=== PATIENT | female | born 1980 | race Caucasian/White ===

== ENCOUNTER 2018-12-31 10:40 | Emergency (ER) | payer MEDICAID ==
[~2018-12-31] VITALS: Ht 165.1 cm; Wt 68.0 kg
[2018-12-31 10:47] VITALS: BP_SYST 113
--- NOTE | 2018-12-31 10:49 | NUR ---
Patient to ER bed 03 to gown for evaluation. Side rails up.
--- NOTE | 2018-12-31 10:59 | NUR ---
patient arrived AOx4 from home with c/o whole body aches and generalized ill feeling x 4 days. patient states she has a fever, however, she is afebrile upon arrival. no n/v/d at this time. no other complaint or injury at this time.
--- NOTE | 2018-12-31 11:00 | NUR ---
ER at bedside examining patient.
[2018-12-31 12:00] LABS: BILIRUBIN,URINE NEGATIVE (NEGATIVE); BLOOD, URINE 3+ (NEGATIVE); CLARITY/URINE SL CLOUDY (CLEAR); COLOR,URINE YELLOW (YELLOW); GLUCOSE,URINE NEGATIVE (NEGATIVE); KETONES,URINE NEGATIVE (NEGATIVE); LEUKOCYTE ESTERASE ,URINE 2+ (NEGATIVE); NITRITE, URINE NEGATIVE (NEGATIVE); PROTEIN URINE 2+ (NEGATIVE); UROBILINOGEN,URINE 0.2 (0.2-1.0)
[2018-12-31] MEDS ORDERED: ACETAMINOPHEN 650 MG/20.3 ML UDC PO ONE (12:00)
[2018-12-31 12:12] LABS: BACTERIA,URINE MODERATE /HPF (None Seen); MUCUS,URINE None Seen /LPF (None Seen); WBC,URINE 50-80 /HPF (0-3); YEAST,URINE None Seen /HPF (None Seen)
[2018-12-31 12:17] LABS: WHITE BLOOD COUNT (AUTO) 13.4 K/uL (4.8-10.8)
[2018-12-31 12:18] LABS: EOSINOPHILS % (AUTO) 0.1 % (0.0-4.0); HEMATOCRIT 38.2 % (36-48); HEMOGLOBIN 12.6 g/dL (12.0-16.0); LYMPHOCYTES % (AUTO) 11.6 % (20.5-51.5); MEAN CORPUSCULAR HEMOGLOBIN 32 pg (27-31); MEAN CORPUSCULAR HGB CONC 33 % (32-36); MEAN CORPUSCULAR VOLUME 96 fL (79.0-98.0); PLATELET COUNT (AUTO) 294 K/uL (130-430); RED BLOOD CELL COUNT(AUTO) 3.98 MIL/uL (4.2-6.2); RED CELL DISTRIBUTION WIDTH 13.3 % (9.0-15.0)
[2018-12-31 12:19] LABS: BASOPHILS % (AUTO) 0.3 % (0.0-2.0); LYMPHOCYTES # (AUTO) 1.5 K/uL (1.0-5.5); MONOCYTES # (AUTO) 1.3 K/uL (0.0-1.0); NEUTROPHILS # (AUTO) 10.5 K/uL (1.8-7.7)
[2018-12-31 12:26] LABS: BARBITURATE, URINE NEGATIVE (NEG <=200); BENZODIAZEPINE, URINE POSITIVE (NEG <=150); CANNABINOID, URINE NEGATIVE (NEG <=50); COCAINE, URINE NEGATIVE (NEG <=150); METHAMPHETAMINES SCREEN,URINE POSITIVE (NEG <=500); OPIATE, URINE NEGATIVE (NEG <=100); PHENCYCLIDINE SCREEN,URINE NEGATIVE (NEG <=25); UR TRICYCLIC ANTIDEPRESSANTS NEGATIVE (NEG <=300); URINE AMPHETAMINE POSITIVE (NEG <=500); URINE METHADONE NEGATIVE (NEG <=200); URINE OXYCODONE SCREEN NEGATIVE (NEG <=100); URINE PROPOXYPHENE SCREEN NEGATIVE (NEG <=300)
[2018-12-31 12:38] LABS: CALCIUM 8.2 mg/dL (8.4-11.0); CREATININE 1.12 mg/dL (0.55-1.30); POTASSIUM 3.6 mmol/L (3.5-5.1)
[2018-12-31 12:45] LABS: ALBUMIN 3.1 g/dL (3.4-4.8); TOTAL BILIRUBIN 0.5 mg/dL (0.0-1.0)
[2018-12-31] MEDS ORDERED: NITROFURANTOIN MONOHYD/M-CRYST 100 MG CAPSULE PO ONE (12:45)
[2018-12-31] MEDS ORDERED: CEPHALEXIN 500 MG CAPSULE PO ONE (12:45)
[2018-12-31 12:55] VITALS: BP_SYST 135
--- NOTE | 2018-12-31 12:55 | NUR ---
Patient given written and verbal discharge instructions and verbalizes understanding. ER MD discussed with patient the results and treatment provided. Patient in stable condition. ID arm band removed. Rx of Ciprofloxacin given. Patient educated on pain management and to follow up with PMD. Pain Scale 0/10. Opportunity for questions provided and answered. Medication side effect fact sheet provided.
== END 2018-12-31 12:55 | disposition home or self-care (01) ==
LOC: SED 10:40
DX: R10.11 Right upper quadrant pain (principal); R53.83 Other fatigue; M79.10 Myalgia, unspecified site; R20.2 Paresthesia of skin; J02.9 Acute pharyngitis, unspecified; R19.7 Diarrhea, unspecified; F17.200 Nicotine dependence, unspecified, uncomplicated; Z90.49 Acquired absence of other specified parts of digestive tract; Z90.89 Acquired absence of other organs; Z87.442 Personal history of urinary calculi; Z88.5 Allergy status to narcotic agent
CPT/HCPCS: 36415; 80053; 80307; 81000-TC; 85025; 86710; 87086; 87186-TC; 99283; 99284

== ENCOUNTER 2019-01-02 11:25 | Inpatient (IN) | payer MEDICAID ==
[~2019-01-02] VITALS: Ht 165.1 cm; Wt 68.0 kg
[~2019-01-02 11:25] MED LIST: GLYCOPYRROLATE 0.2 MG/ML VIAL IJ ONE; IOHEXOL 300 mgI/mL, 50 mL INFUS..BTL IV ONE; KETOROLAC TROMETHAMINE 30 MG VIAL IVP ONE; LR 1,000 ML IV.SOLN IV ONE; MIDAZOLAM HCL 5 MG/5 ML VIAL IVP ONE; NEOSTIGMINE METHYLSULFATE 1 MG/ML, 10 ML VIAL IVP ONE; ONDANSETRON HCL 4 MG/2 ML VIAL IVP ONE; PROPOFOL 200MG/ 20ML VIAL (DIPRIVAN) IV ONE; ROCURONIUM BROMIDE 10 MG/ML (ZEMURON) IV ONE; SEVOFLURANE 15 MIN GAS INH ONE; fentaNYL CITRATE/PF 100 MCG/2 ML AMP IVP ONE
[2019-01-02 11:56] VITALS: BP_SYST 121
[2019-01-02] MEDS ORDERED: NACL 0.9% 1,000 ML IV ONE (12:55)
[2019-01-02] MEDS ORDERED: KETOROLAC TROMETHAMINE 30 MG VIAL IVP ONE (13:00)
[2019-01-02 13:10] LABS: BILIRUBIN,URINE NEGATIVE (NEGATIVE); BLOOD, URINE 3+ (NEGATIVE); CLARITY/URINE SL HAZY (CLEAR); COLOR,URINE YELLOW (YELLOW); GLUCOSE,URINE NEGATIVE (NEGATIVE); KETONES,URINE NEGATIVE (NEGATIVE); LEUKOCYTE ESTERASE ,URINE 1+ (NEGATIVE); NITRITE, URINE NEGATIVE (NEGATIVE); PROTEIN URINE 1+ (NEGATIVE); UROBILINOGEN,URINE 0.2 (0.2-1.0)
[2019-01-02 13:22] LABS: BACTERIA,URINE FEW /HPF (None Seen); MUCUS,URINE 1+ /LPF (None Seen); WBC,URINE 20-50 /HPF (0-3)
[2019-01-02 13:48] LABS: RED BLOOD CELL COUNT(AUTO) 3.71 MIL/uL (4.2-6.2); WHITE BLOOD COUNT (AUTO) 7.6 K/uL (4.8-10.8)
[2019-01-02 13:49] LABS: HEMATOCRIT 35.6 % (36-48); HEMOGLOBIN 12.3 g/dL (12.0-16.0); MEAN CORPUSCULAR HEMOGLOBIN 33 pg (27-31); MEAN CORPUSCULAR VOLUME 96 fL (79.0-98.0)
[2019-01-02 13:50] LABS: EOSINOPHILS % (AUTO) 2.1 % (0.0-4.0); LYMPHOCYTES % (AUTO) 17.3 % (20.5-51.5); MEAN CORPUSCULAR HGB CONC 34 % (32-36); MONOCYTES % (AUTO) 9.7 % (1.7-9.3); NEUTROPHILS % (AUTO) 70.5 % (40.0-70.0); PLATELET COUNT (AUTO) 342 K/uL (130-430); RED CELL DISTRIBUTION WIDTH 13.3 % (9.0-15.0)
[2019-01-02 13:51] LABS: BASOPHILS % (AUTO) 0.4 % (0.0-2.0); EOSINOPHILS # (AUTO) 0.2 K/uL (0.0-0.4); LYMPHOCYTES # (AUTO) 1.3 K/uL (1.0-5.5); MONOCYTES # (AUTO) 0.7 K/uL (0.0-1.0); NEUTROPHILS # (AUTO) 5.4 K/uL (1.8-7.7)
[2019-01-02 14:00] LABS: CALCIUM 8.9 mg/dL (8.4-11.0); CREATININE 0.8 mg/dL (0.55-1.30); POTASSIUM 3.6 mmol/L (3.5-5.1)
[2019-01-02 14:09] LABS: ALBUMIN 2.9 g/dL (3.4-4.8); TOTAL BILIRUBIN 0.2 mg/dL (0.0-1.0)
[2019-01-02] MEDS ORDERED: fentaNYL CITRATE/PF 100 MCG/2 ML AMP IVP ONE (14:15)
[2019-01-02] MEDS ORDERED: cefTRIAXone 1 GM IVPB PREMIX 50 ML IV ONE (14:30)
[2019-01-02] MEDS ORDERED: BUPR300T55 PO (14:32)
[2019-01-02] MEDS ORDERED: LAM100 PO (14:32)
[2019-01-02] MEDS ORDERED: LamoTRIgine 100 MG TABLET PO ONE (14:45)
[2019-01-02] MEDS ORDERED: buPROPion HCL 100 MG TABLET PO ONE (14:45)
[2019-01-02 16:04] VITALS: BP_SYST 96
[2019-01-02] MEDS: KETOROLAC TROMETHAMINE 30 MG VIAL IVP PRN (18:57)
[2019-01-02 19:00] VITALS: BP_SYST 108
[2019-01-02 20:00] VITALS: BP_SYST 104
[2019-01-02] MEDS: LamoTRIgine 100 MG TABLET PO SCH (20:41)
[2019-01-02] MEDS ORDERED: MORPHINE 2 MG/ML INJ. SYRINGE ONE (20:47)
[2019-01-03 00:02] VITALS: BP_SYST 90
[2019-01-03] MEDS: NACL 0.9% 1,000 ML IV SCH ×3 (01:30→23:12)
[2019-01-03] MEDS: MORPHINE 4 MG/ML INJ. SYRINGE IVP PRN ×5 (01:43→20:22)
[2019-01-03 07:44] LABS: ALBUMIN 2.4 g/dL (3.4-4.8); CALCIUM 7.9 mg/dL (8.4-11.0); CREATININE 0.8 mg/dL (0.55-1.30); POTASSIUM 3.3 mmol/L (3.5-5.1); TOTAL BILIRUBIN 0.1 mg/dL (0.0-1.0)
[2019-01-03 08:12] LABS: HEMATOCRIT 31.1 % (36-48); HEMOGLOBIN 10.5 g/dL (12.0-16.0); MEAN CORPUSCULAR HEMOGLOBIN 32 pg (27-31); MEAN CORPUSCULAR HGB CONC 34 % (32-36); MEAN CORPUSCULAR VOLUME 96 fL (79.0-98.0); RED BLOOD CELL COUNT(AUTO) 3.25 MIL/uL (4.2-6.2)
[2019-01-03 08:13] LABS: BASOPHILS % (AUTO) 0.7 % (0.0-2.0); EOSINOPHILS # (AUTO) 0.2 K/uL (0.0-0.4); EOSINOPHILS % (AUTO) 2.7 % (0.0-4.0); LYMPHOCYTES # (AUTO) 1.7 K/uL (1.0-5.5); LYMPHOCYTES % (AUTO) 27.8 % (20.5-51.5); MONOCYTES # (AUTO) 0.5 K/uL (0.0-1.0); MONOCYTES % (AUTO) 8.9 % (1.7-9.3); NEUTROPHILS # (AUTO) 3.6 K/uL (1.8-7.7); NEUTROPHILS % (AUTO) 59.8 % (40.0-70.0); PLATELET COUNT (AUTO) 301 K/uL (130-430); RED CELL DISTRIBUTION WIDTH 13.3 % (9.0-15.0)
[2019-01-03] MEDS: LamoTRIgine 100 MG TABLET PO SCH ×2 (08:27→21:00)
[2019-01-03] MEDS: PANTOPRAZOLE SODIUM 40 MG/VIAL (PROTONIX) IVP SCH (08:28)
[2019-01-03] MEDS: buPROPion HCL 150 MG XL TAB PO SCH (08:28)
[2019-01-03] MEDS: cefTRIAXone 1 GM IVPB PREMIX 50 ML IV SCH (08:28)
[2019-01-03 08:58] VITALS: BP_SYST 105
[2019-01-03] MEDS ORDERED: TAMSULOSIN HCL 0.4 MG CAP PO ONE (11:00)
[2019-01-03 12:05] VITALS: BP_SYST 103
[2019-01-03 16:31] VITALS: BP_SYST 106
[2019-01-03 19:28] VITALS: BP_SYST 105
[2019-01-03 21:17] LABS: PROTHROMBIN TIME 9.9 SECS (9.5-12.5)
[2019-01-04] MEDS: MORPHINE 4 MG/ML INJ. SYRINGE IVP PRN ×2 (00:42→09:45)
[2019-01-04] MEDS: NACL 0.9% 1,000 ML IV SCH (07:30)
[2019-01-04] MEDS ORDERED: IOHEXOL 50 ML IV ONE (07:35)
[2019-01-04 08:45] VITALS: BP_SYST 120
[2019-01-04] MEDS ORDERED: TAMSULOSIN HCL 0.4 MG CAP PO SCH (09:00)
[2019-01-04] MEDS: PANTOPRAZOLE SODIUM 40 MG/VIAL (PROTONIX) IVP SCH (09:43)
[2019-01-04] MEDS: buPROPion HCL 150 MG XL TAB PO SCH (09:43)
[2019-01-04] MEDS: LamoTRIgine 100 MG TABLET PO SCH (09:43)
[2019-01-04] MEDS: cefTRIAXone 1 GM IVPB PREMIX 50 ML IV SCH (09:52)
[2019-01-04] MEDS ORDERED: CEPH-568 PO (09:57)
[2019-01-04] MEDS ORDERED: TAMS-11 PO (09:58)
[2019-01-04 10:37] VITALS: BP_SYST 120
[2019-01-04] MEDS: KETOROLAC TROMETHAMINE 30 MG VIAL IVP PRN (12:06)
[2019-01-04 12:34] VITALS: BP_SYST 101
== END 2019-01-04 13:35 | disposition home or self-care (01) | DRG 465 ==
LOC: SED 11:25 → SMU 15:14
PROVIDERS: ADMIT Internal Medicine Hospice and Palliative Medicine; ATTEND Internal Medicine Hospice and Palliative Medicine
PROC: 0T768DZ Dilation of Right Ureter with Intraluminal Device, Via Natural or Artificial Opening Endoscopic (ICD-10-PCS; principal; 2019-01-04 07:30)
DX: N13.30 Unspecified hydronephrosis (principal); E44.1 Mild protein-calorie malnutrition; N20.0 Calculus of kidney; Z88.5 Allergy status to narcotic agent; Z90.49 Acquired absence of other specified parts of digestive tract
CPT/HCPCS: 36415; 74018; 76000; 80053; 81000-TC; 82962; 83605; 83735-TC; 84100-TC; 85025; 85610-TC; 85730-TC; 87040-TC; 87081; 87086; 96361; 96365; 96375; 99285; C1758; C1769; C2625; C9113; J0696; J1885; J2250; J2270; J2405; J2704; J2710; J3010; J3490; J7030; J7120; Q9967

== ENCOUNTER 2019-10-09 08:02 | Emergency (ER) | payer MEDICAID ==
[~2019-10-09] VITALS: Ht 165.1 cm; Wt 68.0 kg
[~2019-10-09 08:02] MED LIST changes: +BUPR300T55 PO; +CEPH-568 PO; -GLYCOPYRROLATE 0.2 MG/ML VIAL IJ ONE; -IOHEXOL 300 mgI/mL, 50 mL INFUS..BTL IV ONE; -KETOROLAC TROMETHAMINE 30 MG VIAL IVP ONE; +LAM100 PO; -LR 1,000 ML IV.SOLN IV ONE; -MIDAZOLAM HCL 5 MG/5 ML VIAL IVP ONE; -NEOSTIGMINE METHYLSULFATE 1 MG/ML, 10 ML VIAL IVP ONE; -ONDANSETRON HCL 4 MG/2 ML VIAL IVP ONE; -PROPOFOL 200MG/ 20ML VIAL (DIPRIVAN) IV ONE; -ROCURONIUM BROMIDE 10 MG/ML (ZEMURON) IV ONE; -SEVOFLURANE 15 MIN GAS INH ONE; +TAMS-11 PO; -fentaNYL CITRATE/PF 100 MCG/2 ML AMP IVP ONE
[2019-10-09 08:10] VITALS: BP_SYST 123
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
--- NOTE | 2019-10-09 08:10 | NUR ---
Patient to ER bed 3 to gown for evaluation. Side rails up. Assumed care.
--- NOTE | 2019-10-09 08:15 | NUR ---
ER at bedside examining patient.
[2019-10-09 08:32] VITALS: BP_SYST 123
--- NOTE | 2019-10-09 08:32 | NUR ---
Patient given written and verbal discharge instructions and verbalizes understanding. ER MD discussed with patient the results and treatment provided. Patient in stable condition. ID arm band removed. Rx of Keflex, Bactrim given. Patient educated on pain management and to follow up with PMD. Pain Scale 3/10. Opportunity for questions provided and answered. Medication side effect fact sheet provided.
== END 2019-10-09 08:32 | disposition home or self-care (01) ==
LOC: SED 08:02
DX: L03.011 Cellulitis of right finger (principal); Z79.899 Other long term (current) drug therapy; Z90.49 Acquired absence of other specified parts of digestive tract; Z87.442 Personal history of urinary calculi; Z88.5 Allergy status to narcotic agent
CPT/HCPCS: 99283; J7030

== ENCOUNTER 2019-12-01 10:22 | Emergency (ER) | payer MEDICAID ==
[~2019-12-01] VITALS: Ht 165.1 cm; Wt 68.0 kg
[2019-12-01 10:22] VITALS: BP_SYST 114
--- NOTE | 2019-12-01 10:22 | NUR ---
BROUGHT BACK TO BED #4 AND TRIAGED. REPORT GIVEN TO MAY
--- NOTE | 2019-12-01 10:25 | NUR ---
pt came to ER for productive cough x3 days. pt currently in room resting on bus driver/monitor awaiting
--- NOTE | 2019-12-01 10:35 | NUR ---
ER at bedside examining patient.
--- NOTE | 2019-12-01 11:00 | NUR ---
Pt resting comfortably in bed VSS no pain at this time
[2019-12-01 11:15] VITALS: BP_SYST 114
--- NOTE | 2019-12-01 11:15 | NUR ---
Patient given written and verbal discharge instructions and verbalizes understanding. ER MD discussed with patient the results and treatment provided. Patient in stable condition. ID arm band removed. Rx of zpak and cepacol given. Patient educated on pain management and to follow up with PMD. Pain Scale 0. Opportunity for questions provided and answered. Medication side effect fact sheet provided.
== END 2019-12-01 11:15 | disposition home or self-care (01) ==
LOC: SED 10:22
DX: K12.2 Cellulitis and abscess of mouth (principal); Z87.442 Personal history of urinary calculi; Z79.899 Other long term (current) drug therapy
CPT/HCPCS: 99283

== ENCOUNTER 2020-04-18 11:05 | Emergency (ER) | payer MEDICAID ==
[~2020-04-18] VITALS: Ht 165.1 cm; Wt 70.3 kg
[2020-04-18 11:11] VITALS: BP_SYST 127
[2020-04-18 13:46] VITALS: BP_SYST 127
== END 2020-04-18 13:46 | disposition home or self-care (01) ==
LOC: SED 11:05
DX: R03.0 Elevated blood-pressure reading, without diagnosis of hypertension (principal); N28.9 Disorder of kidney and ureter, unspecified; F17.200 Nicotine dependence, unspecified, uncomplicated; Z87.442 Personal history of urinary calculi; Z71.6 Tobacco abuse counseling; Z79.899 Other long term (current) drug therapy
CPT/HCPCS: 36415; 86403; 87081; 99283

== ENCOUNTER 2020-06-05 09:55 | Emergency (ER) | payer MEDICAID, SELFPAY ==
[2020-06-05 10:38] VITALS: BP_SYST 110
[2020-06-05 11:08] VITALS: BP_SYST 110
== END 2020-06-05 11:08 | disposition home or self-care (01) ==
LOC: SED 09:55
DX: J02.8 Acute pharyngitis due to other specified organisms (principal); B97.89 Other viral agents as the cause of diseases classified elsewhere; Z87.442 Personal history of urinary calculi; Z79.899 Other long term (current) drug therapy
CPT/HCPCS: 99283

== ENCOUNTER 2020-11-20 05:07 | Emergency (ER) | payer MEDICAID, SELFPAY ==
[~2020-11-20] VITALS: Ht 165.1 cm; Wt 77.1 kg
[2020-11-20 05:33] VITALS: BP_SYST 149
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
--- NOTE | 2020-11-20 05:35 | NUR ---
KERON Fuentes examining patient.
--- NOTE | 2020-11-20 05:50 | NUR ---
C-xray done by tech
[2020-11-20 06:45] VITALS: BP_SYST 138
--- NOTE | 2020-11-20 06:45 | NUR ---
Patient given written and verbal discharge instructions and verbalizes understanding. ER MD discussed with patient the results and treatment provided. Patient in stable condition. ID arm band removed. No Rx of given. Patient educated on pain management and to follow up with PMD. Pain Scale 0/10. Opportunity for questions provided and answered.
== END 2020-11-20 06:45 | disposition home or self-care (01) ==
LOC: SED 05:07
DX: U07.1 COVID-19 (principal); R51.9 Headache, unspecified; I10 Essential (primary) hypertension; F41.9 Anxiety disorder, unspecified; N28.9 Disorder of kidney and ureter, unspecified; F17.200 Nicotine dependence, unspecified, uncomplicated; Z79.899 Other long term (current) drug therapy; Z90.49 Acquired absence of other specified parts of digestive tract
CPT/HCPCS: 71045; 93005; 99285; C9803; U0003

== ENCOUNTER 2021-11-24 07:41 | Emergency (ER) | payer MEDICAID, SELFPAY ==
[~2021-11-24] VITALS: Ht 165.1 cm; Wt 81.6 kg
[2021-11-24 07:47] VITALS: BP_SYST 143
--- NOTE | 2021-11-24 07:51 | NUR ---
sent to milly
--- NOTE | 2021-11-24 08:00 | NUR ---
dr. sarabia examining pt
[2021-11-24] MEDS ORDERED: KETOROLAC TROMETHAMINE 30 MG VIAL IM ONE (08:15)
[2021-11-24 08:21] LABS: BILIRUBIN,URINE NEGATIVE (NEGATIVE); BLOOD, URINE 2+ (NEGATIVE); CLARITY/URINE CLEAR (CLEAR); COLOR,URINE YELLOW (YELLOW); GLUCOSE,URINE NEGATIVE (NEGATIVE); KETONES,URINE NEGATIVE (NEGATIVE); LEUKOCYTE ESTERASE ,URINE 2+ (NEGATIVE); NITRITE, URINE NEGATIVE (NEGATIVE); PROTEIN URINE NEGATIVE (NEGATIVE); UROBILINOGEN,URINE 0.2 (0.2-1.0)
[2021-11-24 08:35] LABS: BASOPHILS % (AUTO) 0.6 % (0.0-2.0); EOSINOPHILS # (AUTO) 0.2 K/uL (0.0-0.4); HEMATOCRIT 38.9 % (36-48); HEMOGLOBIN 13.1 g/dL (12.0-16.0); LYMPHOCYTES # (AUTO) 1.3 K/uL (1.0-5.5); MEAN CORPUSCULAR HEMOGLOBIN 31 pg (27-31); MEAN CORPUSCULAR HGB CONC 34 % (32-36); MEAN CORPUSCULAR VOLUME 93 fL (79.0-98.0); MONOCYTES # (AUTO) 0.7 K/uL (0.0-1.0); NEUTROPHILS # (AUTO) 5.9 K/uL (1.8-7.7); NEUTROPHILS % (AUTO) 72.4 % (40.0-70.0); PLATELET COUNT (AUTO) 412 K/uL (130-430); RED BLOOD CELL COUNT(AUTO) 4.18 MIL/uL (4.2-6.2); RED CELL DISTRIBUTION WIDTH 13.5 % (9.0-15.0); WHITE BLOOD COUNT (AUTO) 8.2 K/uL (4.8-10.8)
[2021-11-24 08:43] LABS: ANION GAP 9 (5-15); CALCIUM 8.5 mg/dL (8.4-11.0); CHLORIDE 100 mmol/L (98-107); CREATININE 1.17 mg/dL (0.55-1.30); GLUCOSE 93 mg/dL (70-99); POTASSIUM 4.4 mmol/L (3.5-5.1); SODIUM SERUM 133 mmol/L (136-145); UREA NITROGEN, BLOOD 21 mg/dL (8-21)
[2021-11-24 08:44] LABS: GFR AFRICAN AMERICAN 65 mL/min (>90)
[2021-11-24 08:47] LABS: ALANINE AMINOTRANSFERASE 17 U/L (12-78); ALBUMIN 3.5 g/dL (3.4-4.8); AMYLASE 42 U/L (0-100); ASPARTATE AMINOTRANSFERASE 17 U/L (10-37); C-REACTIVE PROTEIN QUANT < 0.2 mg/dL (0-0.5); LIPASE 88 U/L (73-393); TOTAL BILIRUBIN 0.5 mg/dL (0.0-1.0)
[2021-11-24 08:51] LABS: BACTERIA,URINE FEW /HPF (None Seen)
[2021-11-24] MEDS ORDERED: IBUP-1969 PO (09:03)
[2021-11-24] MEDS ORDERED: HYDR-3917 PO (09:03)
[2021-11-24] MEDS ORDERED: KETOROLAC TROMETHAMINE 60 MG/2 ML VIAL IM ONE (09:15)
[2021-11-24 09:42] VITALS: BP_SYST 143
--- NOTE | 2021-11-24 09:42 | NUR ---
Patient given written and verbal discharge instructions and verbalizes understanding. ER MD discussed with patient the results and treatment provided. Patient in stable condition. ID arm band removed. Rx of given. Patient educated on pain management and to follow up with PMD. Pain Scale 0/10. Opportunity for questions provided and answered. Medication side effect fact sheet provided.
== END 2021-11-24 09:42 | disposition home or self-care (01) ==
LOC: SED 07:41
DX: N23 Unspecified renal colic (principal); Z79.899 Other long term (current) drug therapy
CPT/HCPCS: 36415; 74176; 76376; 80053; 81000; 81025; 82150; 83605; 83690; 84703; 85025; 86140; 87086; 96372; 99284; J1885

== ENCOUNTER 2021-12-28 15:53 | Emergency (ER) | payer MEDICAID, SELFPAY ==
[~2021-12-28] VITALS: Ht 165.1 cm; Wt 81.6 kg
[~2021-12-28 15:53] MED LIST changes: +HYDR-3917 PO; +IBUP-1969 PO
[2021-12-28 16:26] VITALS: BP_SYST 115
[2021-12-28] MEDS ORDERED: LIDOCAINE 1%, 20 ML MDV 20 ML ONE (17:05)
[2021-12-28] MEDS ORDERED: DIPH-TET-PERTUS Vaccine 0.5 ML VIAL (ADACEL) I.M. ONE ×2 (17:07→17:15)
[2021-12-28] MEDS ORDERED: LIDOCAINE MPF 1% 50 MG/5 ML AMP INJ ONE (17:15)
--- NOTE | 2021-12-28 17:47 | NUR ---
PATIENT WALKING TO ER WITH LACERATION BETWEEN 4TH-5TH FINGERS OF RIGHT HAND, LACERATION REPAIR DONE BY DR PRIEST TOLERATED WELL D/C HOME WITH INSTRUCTIONS AFTER CARE REVIEWED UNDERSTOOD.
--- NOTE | 2021-12-28 17:48 | NUR ---
Patient given written and verbal discharge instructions and verbalizes understanding. ER MD discussed with patient the results and treatment provided. Patient in stable condition. ID arm band removed. Rx of given. Patient educated on pain management and to follow up with PMD. Pain Scale . Opportunity for questions provided and answered. Medication side effect fact sheet provided.
== END 2021-12-28 17:46 | disposition home or self-care (01) ==
LOC: SED 15:53
DX: S61.411A Laceration without foreign body of right hand, initial encounter (principal); Z79.899 Other long term (current) drug therapy; W45.8XXA Other foreign body or object entering through skin, initial encounter; Y93.89 Activity, other specified; Y92.89 Other specified places as the place of occurrence of the external cause; Y99.8 Other external cause status
CPT/HCPCS: 12001; 90471; 90715; 99283; J2001

== ENCOUNTER 2022-09-23 09:19 | Emergency (ER) | payer MEDICAID ==
[~2022-09-23] VITALS: Ht 165.1 cm; Wt 81.6 kg
[2022-09-23 09:30] VITALS: BP_SYST 123
[2022-09-23] MEDS ORDERED: HYDR-3917 PO (09:36)
[2022-09-23] MEDS ORDERED: SOM350 PO (09:36)
--- NOTE | 2022-09-23 09:36 | NUR ---
Patient to ER bed 7 to gown for evaluation. Side rails up. Report given to .
--- NOTE | 2022-09-23 09:36 | NUR ---
ER Dr. HOLLINS at bedside examining patient.
--- NOTE | 2022-09-23 09:39 | NUR ---
PATIENT CAME FROM HOME C/0 NECK PAIN X 2 DAYS. PATIENT DENIES MEDICAL AND SURGICAL HX. STATES THE PAIN IN HER NECK HAS BEEN KEEPING HER UP AT NIGHT. VSS, PATIENT APPEARS IN NO ACUTE DISTRESS AT THIS TIME. CARE TO BE PROVIDED ORDERED.
[2022-09-23] MEDS ORDERED: KETOROLAC TROMETHAMINE 60 MG/2 ML VIAL IM ONE (09:45)
[2022-09-23 10:05] VITALS: BP_SYST 124
--- NOTE | 2022-09-23 10:08 | NUR ---
Patient given written and verbal discharge instructions and verbalizes understanding. ER DR. GURVINDER ROMEO discussed with patient the results and treatment provided. Patient in stable condition. ID arm band removed. Rx of SOMA, HYDROCODONE given. Patient educated on pain management and to follow up with PMD. Pain Scale 6/10. Opportunity for questions provided and answered. Medication side effect fact sheet provided.
== END 2022-09-23 10:05 | disposition home or self-care (01) ==
LOC: SED 09:19
DX: M43.6 Torticollis (principal); M54.2 Cervicalgia; Z79.899 Other long term (current) drug therapy
CPT/HCPCS: 99283; 96372; J1885

== ENCOUNTER 2023-01-14 09:12 | Emergency (ER) | payer OTHER, MEDICAID ==
[~2023-01-14] VITALS: Ht 165.1 cm; Wt 83.9 kg
[2023-01-14 09:12] VITALS: BP_SYST 111
[~2023-01-14 09:12] MED LIST changes: +SOM350 PO
--- NOTE | 2023-01-14 09:12 | NUR ---
BROUGHT BACK TO BED #3 AND TRIAGED. REPORT GIVEN TO SUHAS
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
[2023-01-14] MEDS ORDERED: KETOROLAC TROMETHAMINE 60 MG/2 ML VIAL IM ONE (09:45)
--- NOTE | 2023-01-14 09:54 | NUR ---
DR. WALKER AT BEDSIDE TO ASSESS PT.
[2023-01-14] MEDS ORDERED: HYDR-3917 PO (09:55)
[2023-01-14] MEDS ORDERED: IBUP-1971 PO (09:55)
--- NOTE | 2023-01-14 10:03 | NUR ---
TORADOL 60MG IM GIVEN. PT TOLERATED WELL.
[2023-01-14 10:05] VITALS: BP_SYST 112
--- NOTE | 2023-01-14 10:10 | NUR ---
Patient given written and verbal discharge instructions and verbalizes understanding. ER MD discussed with patient the results and treatment provided. Patient in stable condition. ID arm band removed. Rx of NORCO, IBUPROFEN given. Patient educated on pain management and to follow up with PMD. Pain Scale 2/10. Opportunity for questions provided and answered. Medication side effect fact sheet provided.
== END 2023-01-14 10:10 | disposition home or self-care (01) ==
LOC: SED 09:12
DX: S13.4XXA Sprain of ligaments of cervical spine, initial encounter (principal); M54.50 Low back pain, unspecified; Z79.899 Other long term (current) drug therapy; V89.2XXA Person injured in unspecified motor-vehicle accident, traffic, initial encounter; Y93.89 Activity, other specified; Y92.89 Other specified places as the place of occurrence of the external cause; Y99.8 Other external cause status
CPT/HCPCS: 99283; 96372; J1885

== ENCOUNTER 2023-02-17 18:42 | Emergency (ER) | payer MEDICAID ==
[~2023-02-17] VITALS: Ht 165.1 cm; Wt 84.4 kg
[~2023-02-17 18:42] MED LIST changes: +IBUP-1971 PO
[2023-02-17 18:47] VITALS: BP_SYST 131
--- NOTE | 2023-02-17 18:55 | NUR ---
ICE PACK APPLIED TO LEFT ANKLE IN TRIAGE.
[2023-02-17] MEDS ORDERED: IBUPROFEN 600 MG TABLET PO ONE (19:30)
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
--- NOTE | 2023-02-17 19:43 | NUR ---
Patient to ER bed 1 to gown for evaluation. Side rails up. Report given to MIKA KLEIN.
--- NOTE | 2023-02-17 19:45 | NUR ---
ER Dr. LIANG at bedside examining patient.
--- NOTE | 2023-02-17 20:02 | NUR ---
APPLIED LEXI WRAP TO LEFT ANKLE. PATIENT TOLERATED WELL. CAP REFILL < 3 SECONDS.
[2023-02-17] MEDS ORDERED: MORPHINE 4 MG INJ. 4 MG/ML VIAL IM ONE (20:15)
--- NOTE | 2023-02-17 20:22 | NUR ---
RIGHT SHORT LEG splint applied to RIGHT LEG. PEDAL pulse noted. Capillary refill < 3seconds. Patient has ability to move non-splinted digits. Has sensation present to affected site. Skin color within normal limits. Applied for pain management control.
[2023-02-17 20:26] VITALS: BP_SYST 126
--- NOTE | 2023-02-17 20:26 | NUR ---
Patient given written and verbal discharge instructions and verbalizes understanding. ER MD discussed with patient the results and treatment provided. Patient in stable condition. ID arm band removed. IV catheter removed intact and dressing applied, no active bleeding. Rx of NORCO AND NAPROSYN given. Patient educated on pain management and to follow up with PMD. Pain Scale 0/10 Opportunity for questions provided and answered. Medication side effect fact sheet provided.
[2023-02-18] MEDS ORDERED: NAPR-1172 PO (13:35)
[2023-02-18] MEDS ORDERED: PERC10 PO (13:35)
== END 2023-02-17 20:26 | disposition home or self-care (01) ==
LOC: SED 18:42
DX: S92.022A Displaced fracture of anterior process of left calcaneus, initial encounter for closed fracture (principal); Z79.899 Other long term (current) drug therapy; W01.0XXA Fall on same level from slipping, tripping and stumbling without subsequent striking against object, initial encounter; Y93.89 Activity, other specified; Y92.89 Other specified places as the place of occurrence of the external cause; Y99.8 Other external cause status
CPT/HCPCS: 99283; 29515; 73610; 96372; J2270

== ENCOUNTER 2023-02-18 12:13 | Emergency (ER) | payer MEDICAID ==
[~2023-02-18] VITALS: Ht 165.1 cm; Wt 74.8 kg
[2023-02-18 12:18] VITALS: BP_SYST 141
[2023-02-18] MEDS ORDERED: MORPHINE 4 MG INJ. 4 MG/ML VIAL IM ONE (12:45)
[2023-02-18] MEDS: ONDANSETRON 4 MG ODT TAB PO ONE ×2 (13:22→13:56)
[2023-02-18] MEDS ORDERED: NAPR-1172 PO (13:35)
[2023-02-18] MEDS ORDERED: PERC10 PO (13:35)
[2023-02-18 13:54] VITALS: BP_SYST 131
== END 2023-02-18 13:53 | disposition home or self-care (01) ==
LOC: SED 12:13
DX: S92.012A Displaced fracture of body of left calcaneus, initial encounter for closed fracture (principal); Z79.899 Other long term (current) drug therapy; W01.0XXA Fall on same level from slipping, tripping and stumbling without subsequent striking against object, initial encounter; Y93.89 Activity, other specified; Y92.89 Other specified places as the place of occurrence of the external cause; Y99.8 Other external cause status
CPT/HCPCS: 99283; 96372; Q0162; J2270

== ENCOUNTER 2024-08-27 03:56 | Emergency (ER) | payer MEDICAID ==
[~2024-08-27] VITALS: Ht 165.1 cm; Wt 78.5 kg
[~2024-08-27 03:56] MED LIST changes: +NAPR-1172 PO; +PERC10 PO
[2024-08-27 04:00] VITALS: BP_SYST 135; PULSE 91; RESP 20; TEMP 98; O2SAT 98
[2024-08-27 06:40] LABS: BASOPHILS # (AUTO) 0.1 K/uL (0.0-0.2); BASOPHILS % (AUTO) 1.1 % (0.0-2.0); EOSINOPHILS # (AUTO) 0.2 K/uL (0.0-0.4); EOSINOPHILS % (AUTO) 3.4 % (0.0-4.0); HEMATOCRIT 38.9 % (36-48); HEMOGLOBIN 13.2 g/dL (12.0-16.0); LYMPHOCYTES # (AUTO) 2.2 K/uL (1.0-5.5); LYMPHOCYTES % (AUTO) 31.4 % (20.5-51.5); MEAN CORPUSCULAR HEMOGLOBIN 31 pg (27-31); MEAN CORPUSCULAR HGB CONC 34 % (32-36); MEAN CORPUSCULAR VOLUME 92 fL (79.0-98.0); MONOCYTES # (AUTO) 0.6 K/uL (0.0-1.0); MONOCYTES % (AUTO) 8.4 % (1.7-9.3); NEUTROPHILS # (AUTO) 3.9 K/uL (1.8-7.7); NEUTROPHILS % (AUTO) 55.7 % (40.0-70.0); PLATELET COUNT (AUTO) 404 K/uL (130-430); RED BLOOD CELL COUNT(AUTO) 4.24 MIL/uL (4.2-6.2); RED CELL DISTRIBUTION WIDTH 13.5 % (9.0-15.0)
[2024-08-27 07:24] LABS: ALANINE AMINOTRANSFERASE 26 U/L (12-78); ALBUMIN 3.8 g/dL (3.4-4.8); ANION GAP 7 (5-15); ASPARTATE AMINOTRANSFERASE 17 U/L (10-37); BILIRUBIN,DIRECT 0.1 mg/dL (0.0-0.3); CALCIUM 8.8 mg/dL (8.4-11.0); CARBON DIOXIDE 30 mmol/L (23-29); CHLORIDE 104 mmol/L (98-107); CREATININE 0.89 mg/dL (0.55-1.30); GFR AFRICAN AMERICAN 88 mL/min (>90); GLUCOSE 90 mg/dL (74-106); POTASSIUM 4.3 mmol/L (3.5-5.1); SODIUM SERUM 141 mmol/L (136-145); TOTAL BILIRUBIN 0.4 mg/dL (0.0-1.0); TOTAL PROTEIN, SERUM 7.2 g/dL (6.4-8.3); UREA NITROGEN, BLOOD 17 mg/dL (8-21)
[2024-08-27 07:26] LABS: GFR NON AFRICAN-AMERICAN 73 mL/min (>90)
[2024-08-27] MEDS: MORPHINE 4 MG INJ. 4 MG/ML VIAL IVP ONE (08:03)
[2024-08-27] MEDS: NITROGLYCERIN 1 INCH (GM) OINT. TP ONE (08:03)
[2024-08-27 10:14] VITALS: BP_SYST 152; PULSE 81; RESP 26; TEMP 97.2; O2SAT 97
[2024-08-27] MEDS ORDERED: NITROGLYCERIN 1 INCH (GM) OINT. TP ONE (23:30)
[2024-08-27] MEDS ORDERED: MORPHINE 4 MG INJ. 4 MG/ML VIAL IVP ONE (23:30)
== END 2024-08-27 10:15 | disposition home or self-care (01) ==
LOC: SED 03:56
DX: R07.89 Other chest pain (principal); R20.0 Anesthesia of skin; F17.200 Nicotine dependence, unspecified, uncomplicated; Z87.442 Personal history of urinary calculi; Z90.49 Acquired absence of other specified parts of digestive tract; Z98.890 Other specified postprocedural states; Z79.899 Other long term (current) drug therapy; Z79.2 Long term (current) use of antibiotics
CPT/HCPCS: 99285; 96374; 71045; 80076; 80048; 83880; 85025; 85379; 84484; 36415; 93005; 81025; J2270